=== PATIENT | female | born 1940 | race Caucasian/White ===

== ENCOUNTER 2016-12-24 10:06 | Day surgery (SDC) | payer MEDICARE, MEDICAID ==
[~2016-12-24 10:06] MED LIST: Midazolam 1 MG/ML 2 ML SDV ONE; fentaNYL 100 MCG/2 ML SDV ONE
[2016-12-24] MEDS ORDERED: Propofol 200 MG/20 ML SDV ONE ×2 (10:07→10:50)
[2016-12-24] MEDS ORDERED: Sodium Chloride 0.9% 5 ML Syringe FLUSH PRN (10:30)
[2016-12-24] MEDS ORDERED: Lactated Ringers 1,000 ML IV SCH (10:30)
[2016-12-24] MEDS ORDERED: Midazolam 1 MG/ML 2 ML SDV IV ONE (11:16)
[2016-12-24] MEDS ORDERED: Propofol 200 MG/20 ML SDV IV ONE (11:16)
[2016-12-24] MEDS ORDERED: fentaNYL 100 MCG/2 ML SDV IV ONE (11:16)
--- NOTE | 2016-12-24 12:05 | PCM.OPNOTE ---
- General Post-Op/Procedure Note Date of Surgery/Procedure: 12/24/16 Operative Procedure(s): Colonoscopy Pre Op Diagnosis: Status post colon carcinoma. Irregular bowel habits. Alteration of bowel habits. Anesthesia Technique: Moderate sedation Primary Surgeon: Mikey Becerra Complications: None Condition: Good Free Text/Narrative:: INFORMED CONSENT: Patient is here today for elective colonoscopy. All aspects of this procedure have been discussed with the patient. All possible complications also, including possibility of perforation, infection, pain, bleeding and unknown complications. In the event of perforation patient may need to have abdominal exploration, colon resection, colostomy and even was discussed. Anesthetic complications were handled by anesthesia department. The patient understands fully well. Patient did not have any further questions for me at the end of my interview. The patient wishes for me to proceed. PREOPERATIVE DIAGNOSIS/INDICATIONS: [status post colon carcinoma irregular bowel habits] POSTOPERATIVE DIAGNOSIS: [no recurrence of colon carcinoma] INSTRUMENT USED: Olympus videocolonoscope. ASA CLASSIFICATION: [2] ANESTHESIA: Continuous EKG, oximetry and intermittent blood pressure and respiratory monitoring were performed throughout the procedure. IV Versed and Fentanyl were administered. PROCEDURE PERFORMED: Colonoscopy POSITIONS OF PATIENT: Left lateral. RECTUM: Normal. SIGMOID COLON: Appears tohave been resected.. DESCENDING COLON: Multiple diverticuli are seen.. SPLENIC FLEXURE: Normal. TRANSVERSE COLON: Normal. HEPATIC FLEXURE: Normal. ASCENDING COLON: Normal. CECUM: Normal. ILEOCECAL VALVE: Normal. BIOPSY: None. TOLERANCE: Excellent. COMPLICATIONS: None. Multiple diverticuli of the descending colon. Negative for recurrence of colon carcinoma.
[2016-12-24 15:38] VITALS: BP 114/65
== END 2016-12-24 13:20 | disposition home or self-care (01) ==
LOC: KA.SDS 10:06
PROVIDERS: ATTEND Family Medicine
DX: K57.30 Diverticulosis of large intestine without perforation or abscess without bleeding (principal); Z85.038 Personal history of other malignant neoplasm of large intestine; I11.0 Hypertensive heart disease with heart failure; I50.30 Unspecified diastolic (congestive) heart failure; E03.9 Hypothyroidism, unspecified; E78.5 Hyperlipidemia, unspecified; I73.9 Peripheral vascular disease, unspecified; D50.9 Iron deficiency anemia, unspecified; J44.9 Chronic obstructive pulmonary disease, unspecified; Z87.891 Personal history of nicotine dependence; Z79.82 Long term (current) use of aspirin; Z79.899 Other long term (current) drug therapy
CPT/HCPCS: 00810; 45378; J2250; J2704; J3010

== ENCOUNTER 2020-02-24 13:21 | Inpatient (IN) | payer MEDICARE, MEDICAID ==
[2020-02-24] MEDS ORDERED: Albuterol 8 GM Inhaler INH PRN (20:26)
[2020-02-24] MEDS ORDERED: Acetaminophen 325 MG Tab PO PRN (20:26)
[2020-02-24] MEDS: atorvaSTATin 40 MG Tab PO SCH (23:32)
[2020-02-24] MEDS: Apixaban 5 MG Tab PO SCH (23:34)
[2020-02-24] MEDS: Omeprazole 20 MG Cap.CR PO SCH (23:34)
[2020-02-24] MEDS: Acetaminophen 500 MG Tab PO SCH (23:35)
[2020-02-25] MEDS: Omeprazole 20 MG Cap.CR PO SCH ×2 (07:24→17:42)
[2020-02-25] MEDS: Levothyroxine 100 MCG Tab PO SCH (07:24)
[2020-02-25] MEDS: Ascorbic Acid 500 MG Tab PO SCH (08:46)
[2020-02-25] MEDS: Bumetanide 1 MG Tab PO SCH (08:47)
[2020-02-25] MEDS: Multivitamins with Minerals/Iron/Folic Acid/Lycopene Tab PO SCH (08:47)
[2020-02-25] MEDS: Lutein/Minerals/Vitamins A, C & E Tab PO SCH (08:47)
[2020-02-25] MEDS: Aspirin 81 MG Tab.Chew PO SCH (08:47)
[2020-02-25] MEDS: Apixaban 5 MG Tab PO SCH ×2 (08:47→20:12)
[2020-02-25] MEDS: Loperamide 2 MG Cap PO PRN (08:47)
[2020-02-25] MEDS: Calcium Citrate/Vitamin D3 315 MG-250 Unit Tab PO SCH (08:47)
--- NOTE | 2020-02-25 10:07 | PCM.HP.2 ---
H&P History of Present Illness - General Date of Service: 02/25/20 Admit Problem/Dx: Admission Diagnosis/Problem Admission Diagnosis/Problem CVA, Cerebrovascular accident - Related Data Allergies/Adverse Reactions: Allergies Allergy/AdvReac Type Severity Reaction Status Date / Time No Known Drug Allergies Allergy Unknown none Verified 02/24/20 20:49 Home Medications: Home Meds Levothyroxine [Synthroid] 100 mcg PO DAILY 08/31/14 [History] Acetaminophen 650 mg PO Q6H PRN 02/24/20 [History] Acetaminophen [Acetaminophen Extra Strength] 1,000 mg PO BEDTIME 02/24/20 [History] Albuterol Sulfate [Albuterol Sulfate Hfa] 2 puff INH Q4H PRN 02/24/20 [History] Apixaban [Eliquis] 2.5 mg PO BID 02/24/20 [History] Ascorbic Acid [C-500] 500 mg PO DAILY 02/24/20 [History] Aspirin 81 mg PO DAILY 02/24/20 [History] Bumetanide [Bumex] 1 mg PO DAILY 02/24/20 [History] Calcium Carbonate/Vitamin D3 [Calcium 600-Vit D3 800 Caplet] 1 tab PO DAILY 02/24/20 [History] Loperamide [Imodium] 2 mg PO ASDIRECTED PRN 02/24/20 [History] Lutein/Minerals/Vit A,C & E [I-Jeny] 1 each PO Q48H 02/24/20 [History] Multivitamin 1 tab PO DAILY 02/24/20 [History] Omeprazole 20 mg PO BIDAC 02/24/20 [History] atorvaSTATin [Lipitor] 40 mg PO BEDTIME 02/24/20 [History] Past Medical History HEENT History: Reports: None, Impaired Vision Other HEENT History: wears glasses Cardiovascular History: Reports: Afib, Heart Failure, High Cholesterol Respiratory History: Reports: COPD Gastrointestinal History: Reports: GI Bleed, Hiatal Hernia Genitourinary History: Reports: None [employer]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: Neurological History: Reports: CVA, TIA Other Neuro History: scheduled for watchman's implant February 2020 Endocrine/Metabolic History: Reports: Hypothyroidism Hematologic History: Reports: Anemia, Blood Transfusion(s) Oncologic (Cancer) History: Reports: Colon - Past Surgical History GI Surgical History: Reports: Colonoscopy, EGD Social & Family History - Family History Family Medical History: Noncontributory - Tobacco Use Smoking Status *Q: Former Smoker Used Tobacco, but Quit: No - Caffeine Use Caffeine Use: Reports: Coffee - Recreational Drug Use Recreational Drug Use: No H&P Review of Systems - Review of Systems: Review Of Systems: See Below General: Reports: No Symptoms HEENT: Reports: Dysphasia (very mild this am ), Glasses. Denies: Contact Lenses, Headaches, Hearing Changes, Rhinitis, Sore Throat, Vertigo, Visual Changes Pulmonary: Denies: Shortness of Breath, Wheezing, Pleuritic Chest Pain, Cough, Sputum Cardiovascular: Reports: No Symptoms Gastrointestinal: Reports: Other (chronic loose stools ) Genitourinary: Reports: No Symptoms Musculoskeletal: Reports: No Symptoms Skin: Denies: Rash Psychiatric: Denies: Confusion, Depression, Mood Lability, Agitation Neurological: Reports: Pre-Existing Deficit (left sided weakness), Trouble Speaking (some mild speech deficit), Difficulty Walking, Weakness. Denies: Confusion, Seizure, Syncope, Tingling Hematologic/Lymphatic: Reports: Anemia, Easy Bleeding, Easy Bruising Immunologic: Reports: No Symptoms Exam - Exam Exam: See Below - Vital Signs Vital Signs: Last Vital Signs Temp 97.9 F 02/25/20 06:45 Pulse 68 02/25/20 09:02 Resp 20 02/25/20 06:45 BP 165/85 H 02/25/20 07:08 Pulse Ox 99 02/25/20 09:02 Weight: 113 lb - Exam Quality Assessment: DVT Prophylaxis (DAPT 2/2 afib hx. ). No: Supplemental Oxygen General: Alert, Oriented, 4 HEENT: EACs Clear, Hearing Intact, Mucosa Moist & [place], Posterior Pharynx Clear Neck: Supple. No: Lymphadenopathy Lungs: Clear to Auscultation, Normal Respiratory Effort Cardiovascular: Regular Rate, Regular Rhythm, Normal S1, Normal S2 GI/Abdominal Exam: Normal Bowel Sounds, Soft, No Distention. No: Guarding, Rigid (Female) Exam: Deferred Rectal (Female) Exam: No: Black Stool (per patient report) Back Exam: No: CVA Tenderness (L), CVA Tenderness (R) Extremities: No Pedal Edema Peripheral Pulses: 1+: Radial (L), Popliteal (L) Skin: Warm, Dry, Intact Neurological: Sensation Intact, Focal Deficit, Reflexes Unequal (1+ right [place] reflex, 0 on left. ). No: Normal Gait, Normal Speech, Normal Tone Neuro Extensive - Motor, Sensory, Reflexes: Tongue Deviation (R), Dysarthria, Facial Palsy (R), Hemeplagia (L), Pronator Drift (L), Abnormal Heel to Driver, Motor/Sensory Deficits. No: Receptive Aphasia, Expressive Aphasia, Abnormal Finger to Nose, Abnormal Sensation, Tremor DTR: 0: Achilles (L), Achilles (R) Psychiatric: Alert, Normal Affect, Normal Mood Sepsis Event Note - Evaluation Sepsis Screening Result: No Definite Risk - Focused Exam Vital Signs: Vital Signs Temp Pulse Resp BP Pulse Ox Pulse Ox 02/25/20 09:02 68 99 02/25/20 07:08 165/85 H 02/25/20 06:45 97.9 F 63 20 174/76 H 97 Date Exam was Performed: 02/28/20 Time Exam was Performed: 12:14 Problem List Initiated/Reviewed/Updated: Yes Orders Last 24hrs: Active Orders 24 hr Category Date Time Status Patient Status [ADT] Routine ADT 02/24/20 13:36 Active Communication Order [RC] DAILY Care 02/25/20 00:01 Active Communication Order [RC] DAILY Care 02/25/20 00:09 Active Communication Order [RC] DAILY Care 02/25/20 00:12 Active Communication Order [RC] DAILY Care 02/25/20 00:42 Active Height and Weight [RC] 0700 Care 02/24/20 13:40 Active RT Incentive Spirometry [RC] Q2HWA Care 02/25/20 09:02 Active Up With Assistance [RC] ASDIRECTED Care 02/24/20 13:35 Active VTE/DVT Education [RC] PER UNIT ROUTINE Care 02/24/20 13:36 Active Vital Signs [RC] 0700,1500 Care 02/24/20 13:36 Active Consult to Case Management/Complaint Investigator [CONS] Cons 02/24/20 13:35 Active Routine Consult to Car Rental Manager [CONS] Routine Cons 02/24/20 13:35 Active PT Evaluation and Treatment [CONS] Routine Cons 02/24/20 13:35 Active Respiratory Care Assess and Treatment [CONS] Routine Cons 02/24/20 13:35 Active ANALYTICS ASSOCIATE Evaluation and Treatment [CONS] Routine Cons 02/24/20 13:35 Active Regular Diet [DIET] Diet 02/24/20 Dinner Active CBC WITH AUTO DIFF [HEME] Routine Lab 02/29/20 06:00 Ordered CBC WITH AUTO DIFF [HEME] Routine Lab 03/07/20 06:00 Ordered CBC WITH AUTO DIFF [HEME] Routine Lab 03/14/20 06:00 Ordered CBC WITH AUTO DIFF [HEME] Routine Lab 03/21/20 06:00 Ordered COMPREHENSIVE METABOLIC PN,CMP [CHEM] Routine Lab 02/29/20 06:00 Ordered COMPREHENSIVE METABOLIC PN,CMP [CHEM] Routine Lab 03/07/20 06:00 Ordered COMPREHENSIVE METABOLIC PN,CMP [CHEM] Routine Lab 03/14/20 06:00 Ordered COMPREHENSIVE METABOLIC PN,CMP [CHEM] Routine Lab 03/21/20 06:00 Ordered MAGNESIUM [CHEM] Routine Lab 02/29/20 06:00 Ordered MAGNESIUM [CHEM] Routine Lab 03/07/20 06:00 Ordered MAGNESIUM [CHEM] Routine Lab 03/14/20 06:00 Ordered MAGNESIUM [CHEM] Routine Lab 03/21/20 06:00 Ordered Acetaminophen [Tylenol Extra Strength] Med 02/24/20 21:00 Active 1,000 mg PO BEDTIME Acetaminophen [Tylenol] Med 02/24/20 20:57 Active 650 mg PO Q6H PRN Albuterol [Ventolin HFA] Med 02/24/20 20:26 Active 2 gm INH Q4H PRN Apixaban [Eliquis] Med 02/24/20 21:00 Active 2.5 mg PO BID Ascorbic Acid [Vitamin C] Med 02/25/20 09:00 Active 500 mg PO DAILY Aspirin Med 02/25/20 09:00 Active 81 mg PO DAILY Bumetanide [Bumex] Med 02/25/20 09:00 Active 1 mg PO DAILY Calcium Citrate/Vitamin D3 [Calcium Citrate + D] Med 02/25/20 09:00 Active 1 tab PO DAILY FA/Lycopene/Lut/MV,Ca,Iron,Min [Centrum] Med 02/25/20 09:00 Active 1 tab PO DAILY Levothyroxine [Synthroid] Med 02/25/20 07:30 Active 100 mcg PO ACBREAKFAST Loperamide [Imodium] Med 02/24/20 20:26 Active 2 mg PO ASDIRECTED PRN Lutein/Minerals/Vit A,C & E [Ocuvite] Med 02/25/20 09:00 Active 1 each PO Q48H Omeprazole Med 02/24/20 21:00 Active 20 mg PO BIDAC atorvaSTATin [Lipitor] Med 02/24/20 21:00 Active 40 mg PO BEDTIME Patient May [OM.PC] Click to Edit Oth 02/24/20 13:35 Ordered Resuscitation Status Routine Resus Stat 02/24/20 13:35 Ordered Medication Orders Acetaminophen (Tylenol Extra Strength) 1,000 mg PO BEDTIME [facility] Last Admin: 02/24/20 23:35 Dose: Not Given Documented by: BRIJESH Acetaminophen (Tylenol) 650 mg PO Q6H PRN PRN Reason: Pain/Fever Albuterol (Ventolin Hfa) 2 gm INH Q4H PRN PRN Reason: Shortness of Breath Apixaban (Eliquis) 2.5 mg PO BID [facility] Last Admin: 02/25/20 08:47 Dose: 2.5 mg Documented by: Admin: 02/24/20 23:34 Dose: 2.5 mg Documented by: BRIJESH Ascorbic Acid (Vitamin C) 500 mg PO DAILY [facility] Last Admin: 02/25/20 08:46 Dose: 500 mg Documented by: ANGY Aspirin (Aspirin) 81 mg PO DAILY [facility] Last Admin: 02/25/20 08:47 Dose: 81 mg Documented by: ANGY Atorvastatin Calcium (Lipitor) 40 mg PO BEDTIME [facility] Last Admin: 02/24/20 23:32 Dose: 40 mg Documented by: BRIJESH Bumetanide (Bumex) 1 mg PO DAILY [facility] Last Admin: 02/25/20 08:47 Dose: 1 mg Documented by: ANGY Calcium Citrate (Calcium Citrate + D) 1 tab PO DAILY [facility] Last Admin: 02/25/20 08:47 Dose: 1 tab Documented by: ANGY Levothyroxine Sodium (Synthroid) 100 mcg PO ACBREAKFAST [facility] Last Admin: 02/25/20 07:24 Dose: 100 mcg Documented by: ANGY Loperamide HCl (Imodium) 2 mg PO ASDIRECTED PRN PRN Reason: Diarrhea Last Admin: 02/25/20 08:47 Dose: 2 mg Documented by: ANGY Multivitamins/Minerals (Centrum) 1 tab PO DAILY [facility] Last Admin: 02/25/20 08:47 Dose: 1 tab Documented by: ANGY Multivitamins/Minerals (Ocuvite) 1 each PO Q48H [facility] Last Admin: 02/25/20 08:47 Dose: 1 each Documented by: ANGY Omeprazole (Omeprazole) 20 mg PO BIDAC [facility] Last Admin: 02/25/20 07:24 Dose: 20 mg Documented by: Admin: 02/24/20 23:34 Dose: 20 mg Documented by: BRIJESH Assessment/Plan Comment:: History of present illness 79-year-old female was transferred/admitted into swing bed status here at [facility] from [facility] for rehabilitation after suffering from CVA. Patient was admitted to [facility] on 02/20 secondary to acute encephalopathy and dysarthria due to a stroke. MRI showed multiple small strokes. Was evaluated by neuro in which it was thought to be ischemic--neurovascular was consulted and they thought this was mostly ischemic, most likely thrombotic versus embolic. A neurocerebral angiogram was performed and she was placed on low dose ASA and Eliquis. Of note the patient had previously been on Xarelto but this was held for GI procedure. Since the patient has history of GI bleed with apixaban and aspirin cardiology has been consulted as she may be a candidate for Watchman implant. She will need serial hemoglobins assessed. Current Neuro deficits: Tongue Deviation (R), Dysarthria, Facial Palsy (R), Hemeplagia (L), Pronator Drift (L), No Abnormal Heel to Driver, Motor/Sensory Deficits She had NO Receptive Aphasia, Expressive Aphasia, Abnormal Finger to Nose, Abnormal Sensation, or Tremor DTR: 0: Achilles (L), Achilles (R) Primary problems Recent CVA with left-sided Hemeplagia Chronic Med/stable problems --Atrial Fib, candidate for Watchman implant, DAPT --Prolonged QTc --Recent non-STEMI --Heart failure, diastolic --Hyperlipidemia --Coronary artery disease/stenosis --Peripheral artery disease --Anemia; blood loss recent transfusion --Hypothyroidism --Macular degeneration Surgery Hx Hx adenocarcinoma R colon s/p hemicolectomy S/P Acute lower GI bleed/with endoscopy noting several AVMs requiring APC Consultations --[facility] respiratory/SS/Speech --[facility], Dr Lidai Brody, at 03/09/20 at 1115am, arrive at 11am --OUTPATIENT AROLDO with [facility] ARU 3, [facility] SL STRESS RM 2 at [facility] on 03/09/20, 1pm-- --US ARTERIAL/VENOUS 60min with [facility] LOWER LEVEL US 4 at [facility] on 08/22/20, 11am. --ED FOLLOW UP with ESTRELLA Bustos at [facility] on 08/22/2020, 1pm CODE STATUS DO NOT RESUSCITATE Disposition Admit to nursing home [facility] for physical therapy Serial hemoglobins Monitor for any dark stools Physical therapy Speech pathology - Mortality Measure Prognosis:: Good
[2020-02-25] MEDS: Acetaminophen 325 MG Tab PO PRN (17:36)
[2020-02-25] MEDS: Acetaminophen 500 MG Tab PO SCH (20:11)
[2020-02-25] MEDS: atorvaSTATin 40 MG Tab PO SCH (20:12)
[2020-02-26] MEDS: Omeprazole 20 MG Cap.CR PO SCH ×2 (06:38→17:42)
[2020-02-26] MEDS: Levothyroxine 100 MCG Tab PO SCH (06:38)
[2020-02-26] MEDS: Acetaminophen 325 MG Tab PO PRN (07:23)
[2020-02-26] MEDS: Bumetanide 1 MG Tab PO SCH (08:48)
[2020-02-26] MEDS: Multivitamins with Minerals/Iron/Folic Acid/Lycopene Tab PO SCH (08:48)
[2020-02-26] MEDS: Apixaban 5 MG Tab PO SCH ×2 (08:48→20:07)
[2020-02-26] MEDS: Ascorbic Acid 500 MG Tab PO SCH (09:16)
[2020-02-26] MEDS: Calcium Citrate/Vitamin D3 315 MG-250 Unit Tab PO SCH (09:16)
[2020-02-26] MEDS: Aspirin 81 MG Tab.Chew PO SCH (09:19)
[2020-02-26] MEDS: Acetaminophen 500 MG Tab PO SCH (20:06)
[2020-02-26] MEDS: atorvaSTATin 40 MG Tab PO SCH (20:07)
[2020-02-27] MEDS: Levothyroxine 100 MCG Tab PO SCH (06:29)
[2020-02-27] MEDS: Omeprazole 20 MG Cap.CR PO SCH ×2 (06:29→17:46)
[2020-02-27] MEDS: Apixaban 5 MG Tab PO SCH ×2 (08:36→20:11)
[2020-02-27] MEDS: Ascorbic Acid 500 MG Tab PO SCH (08:36)
[2020-02-27] MEDS: Aspirin 81 MG Tab.Chew PO SCH (08:36)
[2020-02-27] MEDS: Calcium Citrate/Vitamin D3 315 MG-250 Unit Tab PO SCH (08:36)
[2020-02-27] MEDS: Bumetanide 1 MG Tab PO SCH (08:51)
[2020-02-27] MEDS: Lutein/Minerals/Vitamins A, C & E Tab PO SCH (08:51)
[2020-02-27] MEDS: Multivitamins with Minerals/Iron/Folic Acid/Lycopene Tab PO SCH (08:51)
[2020-02-27] MEDS: Acetaminophen 500 MG Tab PO SCH (20:09)
[2020-02-27] MEDS: atorvaSTATin 40 MG Tab PO SCH (20:10)
[2020-02-27] MEDS: Loperamide 2 MG Cap PO PRN (20:28)
[2020-02-28] MEDS: Levothyroxine 100 MCG Tab PO SCH ×2 (06:08→06:30)
[2020-02-28] MEDS: Omeprazole 20 MG Cap.CR PO SCH ×3 (06:09→17:47)
[2020-02-28] MEDS: Apixaban 5 MG Tab PO SCH ×2 (08:28→20:30)
[2020-02-28] MEDS: Ascorbic Acid 500 MG Tab PO SCH (08:28)
[2020-02-28] MEDS: Calcium Citrate/Vitamin D3 315 MG-250 Unit Tab PO SCH (08:28)
[2020-02-28] MEDS: Multivitamins with Minerals/Iron/Folic Acid/Lycopene Tab PO SCH (09:10)
[2020-02-28] MEDS: Bumetanide 1 MG Tab PO SCH (09:10)
[2020-02-28] MEDS: Aspirin 81 MG Tab.Chew PO SCH (09:10)
--- NOTE | 2020-02-28 12:14 | PCM.PN ---
- General Info Date of Service: 02/28/20 Functional Status: Reports: Pain Controlled, Tolerating Diet, Ambulating, New Symptoms (Improving in her speech and much less dysarthria) - Review of Systems General: Reports: No Symptoms HEENT: Reports: No Symptoms Pulmonary: Reports: No Symptoms Cardiovascular: Reports: No Symptoms Gastrointestinal: Denies: Abdominal Pain, Diarrhea (Stools are chronic loose, no diarrhea), Nausea, Vomiting Genitourinary: Reports: No Symptoms Skin: Reports: No Symptoms Neurological: Reports: Pre-Existing Deficit, Difficulty Walking, Weakness, Gait Disturbance - Patient Data Vitals - Most Recent: Last Vital Signs Temp 97.6 F 02/28/20 06:09 Pulse 60 02/28/20 06:09 Resp 20 02/28/20 06:09 BP 127/61 02/28/20 06:09 Pulse Ox 93 L 02/28/20 06:09 Weight - Most Recent: 109 lb 3 oz I&O - Last 24 Hours: Intake & Output 02/27/20 02/28/20 02/28/20 22:59 06:59 14:59 Intake Total 855 50 Balance 855 50 Med Orders - Current: Current Medications Acetaminophen (Tylenol Extra Strength) 1,000 mg PO BEDTIME [facility] Last Admin: 02/27/20 20:09 Dose: 1,000 mg Documented by: Acetaminophen (Tylenol) 650 mg PO Q6H PRN PRN Reason: Pain/Fever Last Admin: 02/26/20 07:23 Dose: 650 mg Documented by: Albuterol (Ventolin Hfa) 2 gm INH Q4H PRN PRN Reason: Shortness of Breath Apixaban (Eliquis) 2.5 mg PO BID [facility] Last Admin: 02/28/20 08:28 Dose: 2.5 mg Documented by: Ascorbic Acid (Vitamin C) 500 mg PO DAILY [facility] Last Admin: 02/28/20 08:28 Dose: 500 mg Documented by: Aspirin (Aspirin) 81 mg PO DAILY [facility] Last Admin: 02/28/20 09:10 Dose: 81 mg Documented by: Atorvastatin Calcium (Lipitor) 40 mg PO BEDTIME [facility] Last Admin: 02/27/20 20:10 Dose: 40 mg Documented by: Bumetanide (Bumex) 1 mg PO DAILY [facility] Last Admin: 02/28/20 09:10 Dose: 1 mg Documented by: Calcium Citrate (Calcium Citrate + D) 1 tab PO DAILY [facility] Last Admin: 02/28/20 08:28 Dose: 1 tab Documented by: Levothyroxine Sodium (Synthroid) 100 mcg PO ACBREAKFAST [facility] Last Admin: 02/28/20 06:30 Dose: Not Given Documented by: Loperamide HCl (Imodium) 2 mg PO ASDIRECTED PRN PRN Reason: Diarrhea Last Admin: 02/27/20 20:28 Dose: 2 mg Documented by: Multivitamins/Minerals (Centrum) 1 tab PO DAILY [facility] Last Admin: 02/28/20 09:10 Dose: 1 tab Documented by: Multivitamins/Minerals (Ocuvite) 1 each PO Q48H [facility] Last Admin: 02/27/20 08:51 Dose: 1 each Documented by: Omeprazole (Omeprazole) 20 mg PO BIDAC [facility] Last Admin: 02/28/20 06:30 Dose: Not Given Documented by: Discontinued Medications Acetaminophen (Tylenol) 325 mg PO Q6H PRN PRN Reason: Pain - Exam Quality Assessment: DVT Prophylaxis (DAPT). No: Skin Breakdown General: Alert, Oriented, Cooperative, No Acute Distress Lungs: Clear to Auscultation, Normal Respiratory Effort Cardiovascular: Regular Rate, Regular Rhythm GI/Abdominal Exam: Normal Bowel Sounds, Soft, No Mass. No: No Distention, Distended, Guarding, Rigid (Female) Exam: Deferred Back Exam: No: CVA Tenderness (L), CVA Tenderness (R) Peripheral Pulses: 2+: Radial (L), Radial (R) Skin: Warm, Dry, Intact Neurological: Normal Speech, Sensation Intact. No: Strength Equal Bilateral (4/5 strenght left arm ) Psy/Mental Status: Alert, Normal Affect, Normal Mood Sepsis Event Note - Evaluation Sepsis Screening Result: No Definite Risk - Focused Exam Vital Signs: Vital Signs Temp Pulse Resp BP Pulse Ox 02/28/20 06:09 97.6 F 60 20 127/61 93 L Date Exam was Performed: 02/28/20 Time Exam was Performed: 12:08 - Problem List Review Problem List Initiated/Reviewed/Updated: Yes - Plan Plan:: History of present illness 79-year-old female was transferred/admitted into swing bed status here at [facility] from [facility] for rehabilitation after suffering from CVA. Patient was admitted to [facility] on 02/20 secondary to acute encephalopathy and dysarthria due to a stroke. MRI showed multiple small strokes. Was evaluated by neuro in which it was thought to be ischemic--neurovascular was consulted and they thought this was mostly ischemic, most likely thrombotic versus embolic. A neurocerebral angiogram was performed and she was placed on low dose ASA and Eliquis. Of note the patient had previously been on Xarelto but this was held for GI procedure. Since the patient has history of GI bleed with apixaban and aspirin cardiology has been consulted as she may be a candidate for Watchman implant. She will need serial hemoglobins assessed. Hospital course 02/27: Patient improving rapidly with much less deficits today on exam. Nurses reported she was able to rest and dress herself. Much less speech dysarthria, no obvious facial drooping which is dramatically improved. No cough or raspy voice after meals/fluids. Is reporting ambulating now. Current Neuro deficits: Longer has tongue deviation on her right side much less dysarthria with no facial palsy noted. Ongoing but improving Left Hemeplagia. Pronator Drift (L), She has no Receptive Aphasia, Expressive Aphasia, Abnormal Finger to Nose, Abnormal Sensation, or Tremor Primary problems Recent CVA with left-sided Hemeplagia, with significant progress and improvement. Chronic Med/stable problems --Atrial Fib --Prolonged QTc --Recent non-STEMI --Heart failure, diastolic --Hyperlipidemia --Coronary artery disease/stenosis --Peripheral artery disease --Anemia; blood loss recent transfusion --Hypothyroidism --Macular degeneration Surgery Hx Hx adenocarcinoma R colon s/p hemicolectomy S/P Acute lower GI bleed/with endoscopy noting several AVMs requiring APC Consultations --[facility] respiratory/SS/Speech --[facility], Dr Lidia Brody, at 03/09/20 at 1115am, arrive at 11am --OUTPATIENT AROLDO with [facility] ARU 3, [facility] SL STRESS RM [address] [facility] on 03/09/20, 1pm-- --US ARTERIAL/VENOUS 60min with [facility] LOWER LEVEL US 4 at [facility] on 08/22/20, 11am. --ED FOLLOW UP with ESTRELLA Bustos at [facility] on 08/22/2020, 1pm CODE STATUS DO NOT RESUSCITATE Disposition Continue with [facility] for physical therapy Serial hemoglobins Ongoing monitor for melena. Physical therapy Speech pathology
[2020-02-28] MEDS: Acetaminophen 500 MG Tab PO SCH (20:29)
[2020-02-28] MEDS: atorvaSTATin 40 MG Tab PO SCH (20:30)
[2020-02-29] MEDS: Omeprazole 20 MG Cap.CR PO SCH ×2 (07:07→17:16)
[2020-02-29] MEDS: Levothyroxine 100 MCG Tab PO SCH (07:07)
[2020-02-29] MEDS: Lutein/Minerals/Vitamins A, C & E Tab PO SCH (08:05)
[2020-02-29] MEDS: Multivitamins with Minerals/Iron/Folic Acid/Lycopene Tab PO SCH (08:05)
[2020-02-29] MEDS: Calcium Citrate/Vitamin D3 315 MG-250 Unit Tab PO SCH (08:05)
[2020-02-29] MEDS: Ascorbic Acid 500 MG Tab PO SCH (08:06)
[2020-02-29] MEDS: Aspirin 81 MG Tab.Chew PO SCH (08:06)
[2020-02-29] MEDS: Bumetanide 1 MG Tab PO SCH (08:06)
[2020-02-29] MEDS: Apixaban 5 MG Tab PO SCH ×2 (08:06→20:47)
[2020-02-29 08:17] LABS: ANION GAP 10.7 mmol/L (5-15); CHLORIDE,CL 107 mmol/L (98-115); SODIUM,NA 146 mmol/L (136-145)
[2020-02-29] MEDS: Loperamide 2 MG Cap PO PRN ×2 (13:17→13:41)
[2020-02-29] MEDS: atorvaSTATin 40 MG Tab PO SCH (20:47)
[2020-02-29] MEDS: Acetaminophen 500 MG Tab PO SCH (20:48)
[2020-03-01] MEDS: Omeprazole 20 MG Cap.CR PO SCH ×2 (07:01→17:20)
[2020-03-01] MEDS: Levothyroxine 100 MCG Tab PO SCH (07:01)
[2020-03-01] MEDS: Apixaban 5 MG Tab PO SCH ×2 (08:12→20:08)
[2020-03-01] MEDS: Aspirin 81 MG Tab.Chew PO SCH (08:12)
[2020-03-01] MEDS: Bumetanide 1 MG Tab PO SCH (08:13)
[2020-03-01] MEDS: Multivitamins with Minerals/Iron/Folic Acid/Lycopene Tab PO SCH (08:13)
[2020-03-01] MEDS: Calcium Citrate/Vitamin D3 315 MG-250 Unit Tab PO SCH (08:13)
[2020-03-01] MEDS: Ascorbic Acid 500 MG Tab PO SCH (08:13)
[2020-03-01] MEDS: atorvaSTATin 40 MG Tab PO SCH (20:08)
[2020-03-01] MEDS: Acetaminophen 500 MG Tab PO SCH (20:08)
[2020-03-02] MEDS: Omeprazole 20 MG Cap.CR PO SCH ×2 (06:29→17:40)
[2020-03-02] MEDS: Levothyroxine 100 MCG Tab PO SCH (06:29)
[2020-03-02] MEDS: Lutein/Minerals/Vitamins A, C & E Tab PO SCH (08:05)
[2020-03-02] MEDS: Calcium Citrate/Vitamin D3 315 MG-250 Unit Tab PO SCH (08:05)
[2020-03-02] MEDS: Multivitamins with Minerals/Iron/Folic Acid/Lycopene Tab PO SCH (08:05)
[2020-03-02] MEDS: Bumetanide 1 MG Tab PO SCH (08:05)
[2020-03-02] MEDS: Ascorbic Acid 500 MG Tab PO SCH (08:05)
[2020-03-02] MEDS: Aspirin 81 MG Tab.Chew PO SCH (08:06)
[2020-03-02] MEDS: Apixaban 5 MG Tab PO SCH ×2 (08:06→20:10)
[2020-03-02] MEDS: atorvaSTATin 40 MG Tab PO SCH (20:10)
[2020-03-02] MEDS: Acetaminophen 500 MG Tab PO SCH (20:10)
[2020-03-03] MEDS: Levothyroxine 100 MCG Tab PO SCH (07:37)
[2020-03-03] MEDS: Omeprazole 20 MG Cap.CR PO SCH ×2 (07:37→17:21)
[2020-03-03] MEDS: Apixaban 5 MG Tab PO SCH ×2 (08:02→20:02)
[2020-03-03] MEDS: Aspirin 81 MG Tab.Chew PO SCH (08:03)
[2020-03-03] MEDS: Ascorbic Acid 500 MG Tab PO SCH (08:03)
[2020-03-03] MEDS: Bumetanide 1 MG Tab PO SCH (08:03)
[2020-03-03] MEDS: Calcium Citrate/Vitamin D3 315 MG-250 Unit Tab PO SCH (08:04)
[2020-03-03] MEDS: Multivitamins with Minerals/Iron/Folic Acid/Lycopene Tab PO SCH (08:04)
[2020-03-03] MEDS: Acetaminophen 325 MG Tab PO PRN (13:20)
[2020-03-03] MEDS: Acetaminophen 500 MG Tab PO SCH (20:02)
[2020-03-03] MEDS: atorvaSTATin 40 MG Tab PO SCH (20:02)
[2020-03-04] MEDS: Levothyroxine 100 MCG Tab PO SCH (06:29)
[2020-03-04] MEDS: Omeprazole 20 MG Cap.CR PO SCH ×2 (06:29→17:15)
[2020-03-04] MEDS: Multivitamins with Minerals/Iron/Folic Acid/Lycopene Tab PO SCH (08:16)
[2020-03-04] MEDS: Ascorbic Acid 500 MG Tab PO SCH (08:16)
[2020-03-04] MEDS: Bumetanide 1 MG Tab PO SCH (08:16)
[2020-03-04] MEDS: Calcium Citrate/Vitamin D3 315 MG-250 Unit Tab PO SCH (08:16)
[2020-03-04] MEDS: Apixaban 5 MG Tab PO SCH ×2 (08:16→20:37)
[2020-03-04] MEDS: Lutein/Minerals/Vitamins A, C & E Tab PO SCH (08:16)
[2020-03-04] MEDS: Aspirin 81 MG Tab.Chew PO SCH (08:16)
[2020-03-04] MEDS: Acetaminophen 325 MG Tab PO PRN (08:20)
[2020-03-04] MEDS: atorvaSTATin 40 MG Tab PO SCH (20:37)
[2020-03-04] MEDS: Acetaminophen 500 MG Tab PO SCH (20:37)
[2020-03-05] MEDS: Levothyroxine 100 MCG Tab PO SCH (06:30)
[2020-03-05] MEDS: Omeprazole 20 MG Cap.CR PO SCH ×2 (06:30→17:30)
[2020-03-05] MEDS: Aspirin 81 MG Tab.Chew PO SCH (08:30)
[2020-03-05] MEDS: Bumetanide 1 MG Tab PO SCH (08:30)
[2020-03-05] MEDS: Calcium Citrate/Vitamin D3 315 MG-250 Unit Tab PO SCH (08:30)
[2020-03-05] MEDS: Multivitamins with Minerals/Iron/Folic Acid/Lycopene Tab PO SCH (08:30)
[2020-03-05] MEDS: Apixaban 5 MG Tab PO SCH ×2 (08:30→20:40)
[2020-03-05] MEDS: Ascorbic Acid 500 MG Tab PO SCH (08:30)
[2020-03-05] MEDS: Lisinopril 5 MG Tab PO SCH (11:02)
[2020-03-05] MEDS: atorvaSTATin 40 MG Tab PO SCH (20:39)
[2020-03-05] MEDS: Acetaminophen 500 MG Tab PO SCH (20:41)
[2020-03-06] MEDS: Levothyroxine 100 MCG Tab PO SCH ×2 (06:23→06:35)
[2020-03-06] MEDS: Omeprazole 20 MG Cap.CR PO SCH ×3 (06:24→17:19)
[2020-03-06] MEDS: Lisinopril 5 MG Tab PO SCH (08:13)
[2020-03-06] MEDS: Ascorbic Acid 500 MG Tab PO SCH (08:13)
[2020-03-06] MEDS: Bumetanide 1 MG Tab PO SCH (08:13)
[2020-03-06] MEDS: Apixaban 5 MG Tab PO SCH ×3 (08:13→23:25)
[2020-03-06] MEDS: Aspirin 81 MG Tab.Chew PO SCH (08:16)
[2020-03-06] MEDS: Calcium Citrate/Vitamin D3 315 MG-250 Unit Tab PO SCH (08:16)
[2020-03-06] MEDS: Multivitamins with Minerals/Iron/Folic Acid/Lycopene Tab PO SCH (08:16)
[2020-03-06] MEDS: Lutein/Minerals/Vitamins A, C & E Tab PO SCH (08:16)
[2020-03-06] MEDS: Acetaminophen 500 MG Tab PO SCH ×2 (19:25→23:25)
[2020-03-06] MEDS: atorvaSTATin 40 MG Tab PO SCH ×2 (19:26→23:25)
[2020-03-07] MEDS: Levothyroxine 100 MCG Tab PO SCH ×2 (06:24→06:31)
[2020-03-07] MEDS: Omeprazole 20 MG Cap.CR PO SCH ×3 (06:25→17:50)
[2020-03-07] MEDS: Multivitamins with Minerals/Iron/Folic Acid/Lycopene Tab PO SCH (08:04)
[2020-03-07] MEDS: Calcium Citrate/Vitamin D3 315 MG-250 Unit Tab PO SCH (08:04)
[2020-03-07] MEDS: Bumetanide 1 MG Tab PO SCH (08:04)
[2020-03-07] MEDS: Apixaban 5 MG Tab PO SCH ×2 (08:05→20:55)
[2020-03-07] MEDS: Aspirin 81 MG Tab.Chew PO SCH (08:05)
[2020-03-07] MEDS: Ascorbic Acid 500 MG Tab PO SCH (08:05)
[2020-03-07] MEDS: Lisinopril 5 MG Tab PO SCH (08:08)
[2020-03-07 08:11] LABS: ANION GAP 9.2 mmol/L (5-15); CHLORIDE,CL 109 mmol/L (98-115); SODIUM,NA 149 mmol/L (136-145)
--- NOTE | 2020-03-07 15:19 | CR ---
[id number] RAD/RAD Video Swallow Study EXAM: VIDEO SWALLOWING STUDY INDICATION: CHECK FOR SILENT ASPIRATION. COMPARISON: None. DISCUSSION: Multiple consistencies of barium were administered orally under fluoroscopic observation. This was performed in conjunction with speech pathology, refer to their report for full details. IMPRESSION: 1. As above. Ravi Falcon DO 03/07/20 1518 Thank you for allowing us to participate in the care of your patient.
[2020-03-07] MEDS: Loperamide 2 MG Cap PO PRN (16:33)
[2020-03-07] MEDS: atorvaSTATin 40 MG Tab PO SCH (20:56)
[2020-03-07] MEDS: Acetaminophen 500 MG Tab PO SCH (20:56)
[2020-03-08] MEDS: Levothyroxine 100 MCG Tab PO SCH (07:27)
[2020-03-08] MEDS: Omeprazole 20 MG Cap.CR PO SCH ×2 (07:27→17:51)
[2020-03-08] MEDS: Lutein/Minerals/Vitamins A, C & E Tab PO SCH (09:00)
[2020-03-08] MEDS: Bumetanide 1 MG Tab PO SCH (09:00)
[2020-03-08] MEDS: Aspirin 81 MG Tab.Chew PO SCH (09:00)
[2020-03-08] MEDS: Ascorbic Acid 500 MG Tab PO SCH (09:00)
[2020-03-08] MEDS: Calcium Citrate/Vitamin D3 315 MG-250 Unit Tab PO SCH (09:00)
[2020-03-08] MEDS: Multivitamins with Minerals/Iron/Folic Acid/Lycopene Tab PO SCH (09:00)
[2020-03-08] MEDS: Lisinopril 5 MG Tab PO SCH (09:00)
[2020-03-08] MEDS: Apixaban 5 MG Tab PO SCH ×2 (09:00→20:01)
[2020-03-08] MEDS: Acetaminophen 325 MG Tab PO PRN (09:47)
[2020-03-08] MEDS: atorvaSTATin 40 MG Tab PO SCH (20:00)
[2020-03-08] MEDS: Acetaminophen 500 MG Tab PO SCH (20:00)
[2020-03-09 07:54] VITALS: BP 128/62; PULSE 63
== END 2020-03-09 07:53 | DRG 57 ==
LOC: KA.MS 19:57
PROVIDERS: ADMIT Family Medicine; ATTEND Family Medicine
DX: I69.354 Hemiplegia and hemiparesis following cerebral infarction affecting left non-dominant side (principal); I50.30 Unspecified diastolic (congestive) heart failure; I48.91 Unspecified atrial fibrillation; D50.0 Iron deficiency anemia secondary to blood loss (chronic); E03.9 Hypothyroidism, unspecified; I25.10 Atherosclerotic heart disease of native coronary artery without angina pectoris; E78.5 Hyperlipidemia, unspecified; I45.81 Long QT syndrome; E78.00 Pure hypercholesterolemia, unspecified; I73.9 Peripheral vascular disease, unspecified; H35.30 Unspecified macular degeneration; Z85.038 Personal history of other malignant neoplasm of large intestine; I25.2 Old myocardial infarction; Z79.890 Hormone replacement therapy; Z79.82 Long term (current) use of aspirin; Z79.899 Other long term (current) drug therapy; Z87.891 Personal history of nicotine dependence
CPT/HCPCS: 36415; 74230; 80053; 83735; 85018; 85025; 92526-GN; 92610-GN; 92611-GN; 97110-GP; 97162-GP; 97530-GP; A9270-GY